=== PATIENT | male | born 2000 | race Caucasian/White ===

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

== ENCOUNTER 2021-03-13 10:00 | Emergency (ER) | payer OTHER, SELFPAY ==
--- NOTE | 2021-03-13 10:10 | ED.URI ---
HPI - URI/Sore Throat General Chief Complaint: Upper Respiratory Infection Stated Complaint: Sore Throat,Cough,Congestion Time Seen by Provider: 03/13/21 10:11 Source: patient, RN notes reviewed and old records reviewed Mode of arrival: ambulatory Limitations: no limitations History of Present Illness HPI Narrative: 20-year-old male who presents to [facility] with complaints of sore throat, cough, nasal congestion with drainage for the past 3 days. Patient has had Covid vaccinations and booster on 03/08/2021. Patient states history of sinus allergies and takes daily Zyrtec, he has been taking Ibuprofen for his sore throat. Patient denies any known fevers chills or sweats, denies any body aches. States that throat is very sore especially with swallowing. He reports that his girlfriend has strep but he has not seen her for about a week. MD elicited complaint: cough, sore throat, rhinorrhea and nasal congestion Treatments prior to arrival: ibuprofen and other (Zyrtec) Related Data Allergies Allergy/AdvReac Type Severity Reaction Status Date / Time No Known Allergies Allergy Unknown Verified 03/13/21 10:13 Review of Systems Review of Systems: CONSTITUTIONAL: Denies fever, chills, or sweats. EYES: Denies visual changes, redness, or discharge. ENT: Positive for rhinorrhea, congestion, sore throat, no otalgia. CARDIOVASCULAR: Denies chest pain, palpitations, or edema. RESPIRATORY: Positive for cough no dyspnea. GASTROINTESTINAL: Denies abdominal pain, nausea, vomiting, or diarrhea. GENITOURINARY: Denies dysuria or hematuria. SKIN: Denies rash or itching. MUSCULOSKELETAL: Denies back pain, joint pain, or myalgia. NEUROLOGIC: Intermittent headache, no numbness, or weakness. PSYCHIATRIC: Denies anxiety or depression. All systems reviewed & are unremarkable except as noted in HPI and below [facility] Past Medical History Medical History (Updated 03/14/21 @ 00:01 by Efra ePrry) Ear infection Knee fracture, left Strep pharyngitis Surgical History Surgical History (Updated 03/13/21 @ 10:13 by Michelle Roche NP) History of placement of ear tubes History of tonsillectomy and adenoidectomy Family History Family History (Updated 03/13/21 @ 10:33 by Michelle Roche NP) Grandparent Heart disease Hypertension Social History Social History (Updated 03/13/21 @ 10:32 by Michelle Roche NP) Smoking status: Never smoker Alcohol intake: never Substance use: never Living arrangements: with family Gender identity (if verbalized by the patient): Male Comments At time of signature, agree with nursing past medical, surgical, social and family history. There is no relevant family history pertinent to the presenting complaint Exam Narrative: GENERAL: Well-appearing, well-nourished, and in no acute distress. HEAD: Normocephalic, atraumatic. EYES: PERRLA and EOMI. ENT: Nares boggy, clear rhinorrhea no epistaxis. Mucous membranes moist.TM's normal with good light reflex, throat red, no lesions or exudates,tonsils absent. NECK: Supple. no lymphadenopathy CHEST: Clear to auscultation. No respiratory distress. dry cough present SAO2 100% on room air HEART: Regular rate and rhythm. No murmur heard. Normal peripheral pulses. ABDOMEN: Soft, nontender, nondistended, normal active bowel sounds. EXTREMITIES: Normal range of motion. No edema. SKIN: Warm, dry, no rash. NEURO: No focal deficits. Alert and oriented x3. Course Vital Signs Vital signs: Vital Signs Temperature 37.5 C 03/13/21 10:12 Pulse Rate 81 03/13/21 10:12 Respiratory Rate 16 03/13/21 10:12 Blood Pressure 148/77 H 03/13/21 10:12 Pulse Oximetry 100 03/13/21 10:12 Temperature 37.5 C 03/13/21 10:12 Pulse Rate 81 03/13/21 10:12 Respiratory Rate 16 03/13/21 10:12 Blood Pressure 148/77 H 03/13/21 10:12 Pulse Oximetry 100 03/13/21 10:12 MDM - URI/Sore Throat Differential Diagnosis Differential diagnosis: Likely upper
[2021-03-13 10:12] VITALS: BP 148/77; PULSE 81; RESP 16; TEMP 37.5; O2SAT 100
== END 2021-03-13 11:00 | disposition home or self-care (01) ==
PROVIDERS: Emergency Provider Registered Nurse
DX: J02.9 Acute pharyngitis, unspecified (principal)
CPT/HCPCS: 87081; 87880; 99213; G0463

== ENCOUNTER 2021-11-22 22:26 | Emergency (ER) | payer OTHER, SELFPAY ==
[2021-11-22 22:27] VITALS: BP 146/94; PULSE 80; RESP 16; TEMP 37.1; O2SAT 100
--- NOTE | 2021-11-22 23:38 | ED.SKABFB ---
HPI - Skin/Abscess/Foreign Bdy General Chief complaint: Skin/Abscess/Foreign Body Stated complaint: allergic reaction Time Seen by Provider: 11/22/21 23:01 History of Present Illness HPI narrative: 21-year-old male presents to the emergency room for evaluation of a rash that has been present on his bilateral lower extremities for over 2 months. Patient states the rash is recently gotten worse and is changed colors. Patient has been seen in his primary care physician's office and was told that it was eczema and was given steroid cream and oral steroids. Patient states the rash got worse. Also states the rash is worse when he wears long pants or when he sweats a lot. Rash is more painful when he is in the heat. Related Data Home Medications Medication Instructions Recorded Confirmed cetirizine 10 mg tablet (Zyrtec) 10 mg PO DAILY PRN allergy symptoms 04/16/21 09/18/21 docusate sodium 100 mg capsule 100 mg PO DAILY 04/28/21 09/18/21 (Dulcolax Stool Softener (docusate)) Allergies Allergy/AdvReac Type Severity Reaction Status Date / Time No Known Allergies Allergy Unknown Verified 03/13/21 10:13 Review of Systems Review of Systems: CONSTITUTIONAL: Denies fever, chills, or sweats. EYES: Denies visual changes, redness, or discharge. ENT: Denies rhinorrhea, congestion, sore throat, or otalgia. CARDIOVASCULAR: Denies chest pain, palpitations, or edema. RESPIRATORY: Denies cough or dyspnea. GASTROINTESTINAL: Denies abdominal pain, nausea, vomiting, or diarrhea. GENITOURINARY: Denies dysuria or hematuria. SKIN: Reports rash to bilateral lower extremities MUSCULOSKELETAL: Denies back pain, joint pain, or myalgia. NEUROLOGIC: Denies headache, numbness, dizziness, or weakness. PSYCHIATRIC: Denies anxiety or depression. [facility] Past Medical History Medical History BMI 23.0-23.9, adult Bruise COVID-19 (09/25/21) Ear infection Encounter for wellness examination in adult H/O urinary frequency Heart murmur on physical examination noted in childhood and benign Knee fracture, left Rash and nonspecific skin eruption Rectal pain Seasonal allergic rhinitis Strep pharyngitis Surgical History Surgical History History of placement of ear tubes History of tonsillectomy and adenoidectomy Family History Family History Grandparent Heart disease Hypertension Social History Social History Smoking status: Never smoker Alcohol intake: current Alcohol use details: once a month Substance use: never Substance use type: does not use Gender identity (if verbalized by the patient): Male Exam Narrative: GENERAL: Well-appearing, well-nourished, no physical limitations, and in no acute distress. HEAD: Normocephalic, atraumatic. EYES: Conjunctivae normal, PERRLA and EOMI. CHEST: Clear to auscultation. No respiratory distress. No wheezes rales or rhonchi. No tenderness. HEART: Regular rate and rhythm. No murmur heard. Normal peripheral pulses. EXTREMITIES: Normal range of motion. No edema. No clubbing or cyanosis SKIN: Bilateral lower extremities: Scaly ring shaped areas that are confluent with colors that range from red to reddish to purple. NEURO: No focal deficits. Alert and oriented x3. MAEW. CN's II-XI intact bilaterally, normal gait PSYCH: Cooperative. Normal mood and affect. Course Vital Signs Vital signs: Vital Signs Temperature 37.1 C 11/22/21 22:27 Pulse Rate 80 11/22/21 22:27 Respiratory Rate 16 11/22/21 22:27 Blood Pressure 146/94 H 11/22/21 22:27 Pulse Oximetry 100 11/22/21 22:27 Oxygen Delivery Room Air 11/22/21 22:27 Temperature 37.1 C 11/22/21 22:27 Pulse Rate 80 11/22/21 22:27 Respiratory Rate 16 11/22/21 22:27 Blood Pressure 146/94 H
[2021-11-23 00:17] LABS: Alanine Aminotransferase 30 U/L (6-50); Albumin Level 5.2 g/dL (3.5-5.1); Alkaline Phosphatase 107 U/L (38-126); Anion Gap 15 mmol/L (8-16); Aspartate Amino Transferase 26 U/L (17-59); Bilirubin,Total 0.7 mg/dL (0.2-1.3); Blood Urea Nitrogen 24 mg/dL (9-20); Calcium 9.5 mg/dL (8.4-10.2); Carbon Dioxide 29 mmol/L (22-30); Chloride 96 mmol/L (98-107); Estimated CRCL calculation 120 ml/min; Estimated Glomerular Filt Rate > 60; Glucose 100 mg/dL (65-110); Potassium 4.1 mmol/L (3.4-5.0); Sodium 140 mmol/L (137-145)
[2021-11-23] MEDS: TERBINAFINE HCL 250 MG TABLET PO (00:19)
== END 2021-11-23 00:26 | disposition home or self-care (01) ==
PROVIDERS: Emergency Provider Nurse Practitioner Family; PCP Family Medicine
DX: B35.4 Tinea corporis (principal); Z86.16 Personal history of COVID-19
CPT/HCPCS: 36415; 80053; 99283; A9270

== ENCOUNTER 2023-05-27 06:36 | Day surgery (SDC) | payer OTHER, SELFPAY ==
[2023-05-17 14:16] VITALS: BMI 24.6
[2023-05-25 07:19] VITALS: BMI 25.0
[2023-05-27 07:37] VITALS: BP 154/91; PULSE 94; RESP 20; TEMP 37.4; O2SAT 100
--- NOTE | 2023-05-27 07:52 | WPDHPUPDATE1 ---
History and Physical Update Update Date/Time: 05/27/23 07:52 History and Physical has been reviewed, including an updated exam of the patient. There are NO changes in the patient's condition. Risks, benefits, and alternatives have been discussed and questions answered. Patient agrees to proceed with procedure.
[2023-05-27] MEDS: LACTATED RINGERS 1,000 ML 150 ML IV CONT (07:55)
--- NOTE | 2023-05-27 08:11 | WPDANESEPPF ---
Anes - Initial Pre Proc Eval Procedure: Operation Date: 05/27/23 09:00 Proposed Procedures p Colonoscopy - Abraham Gomez MD Date/Time: 05/27/23 08:11 Surgeon: Abraham Gomez MD Pre Op Diagnosis: Hemorrhage of anus and rectum, other specified Patient Data Age: 23 Gender: M Height: 1.88 m Weight: 87.3 kg Last Vital Signs Temp 37.4 C 05/27/23 07:37 Pulse 94 05/27/23 07:37 Resp 20 05/27/23 07:37 BP 154/91 H 05/27/23 07:37 Pulse Ox 100 05/27/23 07:37 O2 Del Method Room Air 05/27/23 07:37 Allergies Allergy/AdvReac Type Severity Reaction Status Date / Time No Known Allergies Allergy Unknown Verified 05/27/23 07:36 Home Medications Medication Instructions Recorded Confirmed Type hydrocortisone 2.5 % topical cream 1 applic RECTAL TID PRN pain #30 04/15/23 05/27/23 Rx with perineal applicator grams (Anusol-HC) lidocaine 5 % topical cream 1 applic topical TID PRN pain 04/15/23 05/27/23 History ([facility]) polydextrose 2.5 gram-vitamin B 2 tablet PO . daily #60 tabs 05/10/23 05/27/23 Rx complex chewable tablet (Fiber Gummies (with B-complex)) sodium,potassium,mag sulfates 17.5 See Rx Instructions PO .COMPLEX 05/25/23 05/27/23 Rx gram-3.13 gram-1.6 gram oral soln #354 mL (Suprep Bowel Prep Kit) Patient hx anesthesia problems: none Family hx anesthesia problems: none Results Review: All pre-operative results and documents have been reviewed as part of the pre-operative evaluation. [facility] Past Medical History Medical History BMI 23.0-23.9, adult BMI 24.0-24.9, adult Chronic constipation Chronic rectal pain COVID-19 (09/25/21) Ear infection Encounter for wellness examination in adult H/O urinary frequency Hearing loss of left ear due to cerumen impaction Heart murmur on physical examination noted in childhood and benign Knee fracture, left Rash and nonspecific skin eruption Rectal bleeding Rectal pain Strep pharyngitis Vasculitis determined by biopsy of skin Surgical History Surgical History History of placement of ear tubes History of tonsillectomy and adenoidectomy Family History Family History Grandparent Heart disease Hypertension Social History Social History Smoking status: Never smoker Alcohol intake: current Alcohol use details: once a month Substance use: never Substance use type: does not use Current Housing: Decline to Answer Concerned About Future Housing: Decline to Answer Difficulty Paying Gas/Electric Bills: Decline to Answer Difficulty Paying for Meds: Decline to Answer Currently Unemployed: Decline to Answer Education: Decline to Answer Difficulty w/ Childcare or Family Care: No Living arrangements: with family Gender identity (if verbalized by the patient): Male Spiritual care concerns: No Anes - Eval Final PreProcedure Day of Procedure 05/27/23 08:11 Patient weight: normal Heart: regular rate and rhythm Lungs: clear to auscultation Airway: Mallampati scale class II Neurological: alert and oriented Last oral intake: >/= 8 hours ASA classification: I Emergent: no Anesthetic plan: proceed Anesthesia type and monitoring: general GIVS and standard monitoring Results Review: All pre-operative results and documents have been reviewed as part of the pre-operative evaluation. Informed Consent: The patient's anesthetic plan and its attendant risks and benefits were discussed with the patient/family/POA. Questions were solicited and answers provided to the satisfaction of the patient/family/POA.
[2023-05-27 09:02] VITALS: BP 114/73; PULSE 85; RESP 16; O2SAT 100
[2023-05-27 09:12] VITALS: BP 129/81; PULSE 82; RESP 18; O2SAT 100
[2023-05-27 09:22] VITALS: BP 110/89; PULSE 80; RESP 18; O2SAT 100
--- NOTE | 2023-05-27 09:23 | WPDANESPN ---
Anes - Prog Note Post-Op Date/Time: 05/27/23 09:23 Cardiovascular status: normal Respiratory status: normal Airway patency: baseline Mental status: baseline Post-Op hydration status: normal Vital Signs: Last Vital Signs Temp 37.4 C 05/27/23 07:37 Pulse 82 05/27/23 09:12 Resp 18 05/27/23 09:12 BP 129/81 05/27/23 09:12 Pulse Ox 100 05/27/23 09:12 O2 Del Method Room Air 05/27/23 09:12 Pain Score (VAS): 0/10 I/O: Intake & Output 05/26/23 05/27/23 05/27/23 23:59 07:59 15:59 Intake Total 600 Balance 600 Patient Feedback: Patient satisfied with anesthetic care.
== END 2023-05-27 09:32 | disposition home or self-care (01) ==
PROVIDERS: PCP Family Medicine; Visit Provider Internal Medicine Gastroenterology
PROC: 0DJD8ZZ Inspection of Lower Intestinal Tract, Via Natural or Artificial Opening Endoscopic (ICD-10-PCS; CPT 45378; principal; 2023-05-27 09:00)
DX: Z83.718 Family history of other colon polyps (principal); K62.5 Hemorrhage of anus and rectum; K64.8 Other hemorrhoids
CPT/HCPCS: 45378